=== PATIENT | female | born 1955 | race Caucasian/White ===

== ENCOUNTER → 2024-02-22 06:34 | Day surgery (SDC) | payer MEDICARE, OTHER, SELFPAY | LOC: GI 06:34 | PROVIDERS: ATTENDING PHYSICIAN Internal Medicine Gastroenterology | DX: D12.5 Benign neoplasm of sigmoid colon (principal); K63.5 Polyp of colon; K57.30 Diverticulosis of large intestine without perforation or abscess without bleeding; K64.0 First degree hemorrhoids; R19.5 Other fecal abnormalities | CPT/HCPCS: 45385; 88305 ==

== ENCOUNTER → 2025-10-13 10:54 | Outpatient (REF) | payer MEDICARE, OTHER, SELFPAY | LOC: RAD 10:54 | PROVIDERS: ATTENDING PHYSICIAN Student in an Organized Health Care Education/Training Program | DX: R09.89 Other specified symptoms and signs involving the circulatory and respiratory systems (principal); R05.3 Chronic cough | CPT/HCPCS: 71046 ==